=== PATIENT | female | born 1955 | race Caucasian/White ===

== ENCOUNTER 2021-10-07 14:42 | Emergency (ER) | payer MEDICARE, OTHER ==
[2021-10-07] MEDS ORDERED: Acetaminophen 500 MG Tab PO ONE (16:10)
[2021-10-07] MEDS ORDERED: Ketorolac 30 MG/ML SDV IM ONE (16:10)
== END 2021-10-07 16:26 | disposition home or self-care (01) ==
LOC: DL.ED 14:42
DX: H72.92 Unspecified perforation of tympanic membrane, left ear (principal); H61.22 Impacted cerumen, left ear
CPT/HCPCS: 96372; 99282; A9270; J1885